=== PATIENT | female | born 2005 | race Caucasian/White ===

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

== ENCOUNTER 2025-07-31 21:44 | Emergency (ER) | payer OTHER ==
[~2025-07-31] VITALS: Ht 162.5 cm; Wt 46.3 kg
[~2025-07-31 21:44] MED LIST changes: +MEDROL DOSEPAK4 MG PO
[2025-07-31] MEDS ORDERED: diphenhydrAMINE hydrochloride 50 MG/ML VIAL IM PRN (22:00)
[2025-07-31] MEDS ORDERED: LORazepam 0.5 MG TAB PO ONE (22:35)
[2025-07-31 22:38] LABS: BILIRUBIN Negative (Negative); BLOOD Negative (Negative); CLARITY Cloudy (Clear); COLOR Yellow (Yellow); KETONE 1+ (Negative); LEUKO ESTERASE Negative (Negative); NITRITE Negative (Negative); PH 6.0 (4.5-8.0); SPECIFIC GRAVITY 1.025 (1.001-1.030); UROBILINOGEN 1.0 E.U./dl (0.0-1.0)
[2025-07-31 22:46] LABS: URINE AMPHETAMINES Negative (1000ng/ml); URINE BARBITURATES Negative (200ng/ml); URINE BENZODIAZEPINES Negative (200ng/ml); URINE CANNABINOIDS (THC) Positive (50ng/ml); URINE COCAINE Negative (300ng/ml); URINE METHADONE Negative (300ng/ml); URINE OPIATES Negative (300ng/ml); URINE PHENCYCLIDINE Negative (25ng/ml)
[2025-07-31 22:48] LABS: BASO # 0.0 10*3/uL (0.0-0.1); BASO % 0.3 % (0.0-1.0); EOS # 0.1 10*3/uL (0.0-0.4); EOS % 0.6 % (1.0-4.0); MEAN CELL VOLUME 92.1 fl (81.0-99.0); MEAN CORPUSCULAR HGB 29.8 pg (27.0-31.0); MEAN PLATELET VOLUME 10.7 fl (9.6-12.3); MONO # 0.9 10*3/uL (0.1-1.0); MONO % 7.0 % (3.0-9.0); NEUT # 8.2 10*3/uL (2.3-7.9); NEUT % 66.0 % (47.0-73.0); NUCLEATED RED BLOOD CELL 0.0 % (0.0-0.0); NUCLEATED RED BLOOD CELL 0.0 10*3/uL (0.0-0.0); PLATELET COUNT AUTOMATED 326 10*3/uL (130-400); RED CELL DISTRI WIDTH 12.1 % (0-14.5)
[2025-07-31 23:14] LABS: BACTERIA 2+; EPITHELIAL CELLS 41-50
[2025-07-31 23:24] LABS: BUN 7 mg/dl (9-23); CPK 98 U/L (34-171); SGPT/ALT 20 U/L (5-49)
[2025-07-31 23:25] LABS: ETHYL ALCOHOL < 3.0 mg/dl (<3)
== END 2025-08-01 11:44 ==
LOC: ED 21:44
PROVIDERS: Internal Medicine
DX: F43.21 Adjustment disorder with depressed mood (principal); Z79.899 Other long term (current) drug therapy